=== PATIENT | female | born 1950 | race Asian ===

== ENCOUNTER 2017-09-19 09:42 | Day surgery (SDC) | END 2017-09-19 15:04 | disposition home or self-care (01) ==

== ENCOUNTER 2019-02-07 20:46 | Inpatient (IN) | payer OTHER ==
[~2019-02-07] VITALS: Ht 160 cm; Wt 66.0 kg
[~2019-02-07 20:46] MED LIST: carvedilol PO; lisinopril PO; metformin PO; omeprazole PO; simvastatin PO
[2019-02-07] MEDS ORDERED: ALBUTEROL 0.083% (NEB) 2.5 MG/3 ML AMP NEB STA (21:48)
[2019-02-07] MEDS ORDERED: IPRATROPIUM (NEB) 0.5 MG/2.5 ML AMP NEB STA (21:48)
[2019-02-07] MEDS ORDERED: CEFEPIME 2GM/50 ML (PMX) 50 ML IVPB STA (22:56)
[2019-02-07] MEDS ORDERED: SODIUM CHLORIDE 0.9% 1L BAG IV* STA (22:56)
[2019-02-07] MEDS ORDERED: VANCOMYCIN 1 GM (PMX) 250 ML IVPB ONE (23:00)
[2019-02-08] VITALS (11 sets, daily range): BP systolic 103–132; BP diastolic 55–62; PULSE 82–106; RESP 18–20; Ht 160 cm; Wt 66.0 kg
[2019-02-08] MEDS ORDERED: ACETAMINOPHEN 325 MG TAB PO PRN (02:00)
[2019-02-08] MEDS ORDERED: ONDANSETRON 4 MG INJ IV PRN (02:00)
[2019-02-08] MEDS ORDERED: NACL 0.9% 3 ML SYG IV SCH (02:00)
[2019-02-08] MEDS: ACCU-CHEK XX SCH (02:00)
--- NOTE | 2019-02-08 02:06 | HP ---
Date/Time of Note Date/Time of Note DATE: 02/08/19 TIME: 01:55 Assessment/Plan VTE Prophylaxis SCD applied (from Nsg): Yes Pharmacological prophylaxis: NA/contraindicated Pharm contraindication: low risk/ambulating Lines/Catheters IV Catheter Type (from Nrsg): Saline Lock Assessment/Plan Assessment/Plan 68 yo woman with CHF presents in mild exacerbation with cough and likely viral URI #Cough #Leukocytosis - Likely has viral URI with sick contacts at home - 3 week presentation and lack of lobar infiltrates on CXR makes bacterial pneumonia unlikely. Will stop antibiotics. - Check influenza. Patient not a candidate for oseltamivir. #CHF - Appears to be in mild CHF exacerbation with reports of PND, and pulmonary edema on CXR - Gentle diuresis with lasix. - Had been off lasix for 1 month. May need new script - Entresto not covered by insurance, may switch back to lisinopril instead. - Consult cardiology Dr. Barroso before discharging with med changes. #Back pain - Ibuprofen prn #Diabetes - Metformin may be contributing to lactic acidosis. - Will hold and start sliding scale insulin. DVT: SCDs GI: None Result Diagram: 02/07/19215702/07/192157 HPI/ROS Admit Date/Time Admit Date/Time 08 February 2019 Hx of Present Illness Ms. Noel is a 68 yo woman with recently diagnosed CHF who presents with lower back pain and cough. She was in her usual state of health until about 3 weeks ago when she developed cough productive of yellow sputum. Says several people at home were sick with a cough around that time. Hers has persisted longer than other family members. Also with aching lower back pain for about a week, worse when laying flat, improves when standing and walking. Ibuprofen helps. Finally, she complains of chest discomfort in the morning which resolves when getting up. Also occasionally has episodes of paroxysmal nocturnal dyspnea. She stopped taking her lasix 1 month ago because she didn't like urinating so m uch. She was switched from lisinopril to Entresto a week ago but her insurance won't fill it so she hasn't picked up Entresto, but did stop taking lisinopril. In the ED she was afebrile, slightly tachy to 124. WBC elevated to 12.7. POC lactate was 4.2 so she was admitted for "severe sepsis". ROS She denies fever, chills, night sweats, anorexia, weight loss, headache, dizzin ess, vertigo, dysphagia, chest pressure/palpitations, dyspnea, nausea, vomiting, abdominal pain, diarrhea, constipation, dysuria, hematuria, flank pain, melena PMH/Family/Social Past Medical History Congestive heart failure Non-insulin dependent diabetes mellitus Medications Current Medications IV Flush (NS 3 ml) 3 ml PER PROTOCOL IV ; Start 02/08/19 at 02:00; Status UNV Ondansetron HCl (Zofran Inj) 4 mg Q6H PRN IV NAUSEA/VOMITING; Start 02/08/19 at 02:00; Status UNV Acetaminophen (Tylenol Tab) 650 mg Q6H PRN PO .PAIN 1-3 OR TEMP; Start 02/08/19 at 02:00; Status UNV Ibuprofen (Motrin) 600 mg Q6H PRN PO .PAIN 1-3; Start 02/08/19 at 02:00; Status UNV Coded Allergies: No Known Allergy (Unverified , 09/19/17) Past Surgical History Left mastectomy for breast cancer 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 Cholecystectomy Social History Alcohol Use: none Smoking Status: Never smoker Drug Use: none Exam/Review of Systems Vital Signs Vitals Vital Signs Date Temp Pulse Resp B/P (MAP) Pulse Ox O2 O2 Flow FiO2 Time Delivery Rate 02/08/19 97 24 101/73 97 Room Air 01:00 (82) 02/08/19 98.5 00:00 02/07/19 21 21:55 Intake and Output 02/07/19 02/07/19 02/08/19 1515:00 23:00 07:00 IntakeIntake Total 50 ml BalanceBalance 50 ml Exam Exam Gen: well appearing woman in no acute distress Eyes: PERRL, no icterus HEENT: Moist mucous membranes, clear oropharynx Neck:Supple, no lymphadenopathy, JVD to level of the mandible. Card: Regular rate and rhythm, no murmurs Pulm: Bibasilar crackles. Breathing comfortably on room air. Abd: Soft, nontender, nondistended. No hepatosplenomegaly. Ext: No cyanosis/clubbing/edema, good peripheral pulses. Skin: warm, dry, well perfused. CHRISTIANA FARFAN MD Feb 08, 2019 02:06
--- NOTE | 2019-02-08 02:08 | ERD ---
ER Documentation Chief Complaint Chief Complaint CWP, BACK PAIN, COUGH X'S 3 WEEKS HPI This is a very pleasant 60-year female because of chest wall pain back pain and cough for 3 weeks. The cough is mildly productive. Denies because her chest wall pain. Denies any fevers or chills. Denies any nausea vomiting. Denies any other current issues. ROS All systems reviewed and are negative except as per history of present illness. Medications Home Meds Reported Medications [simvastatin] No Conflict Check, PO DAILY 09/19/17 [metformin] No Conflict Check, PO DAILY 09/19/17 [carvedilol] No Conflict Check, PO DAILY 09/19/17 [lisinopril] No Conflict Check, PO DAILY 09/19/17 [omeprazole] No Conflict Check, PO DAILY 09/19/17 Allergies Allergies: Coded Allergies: No Known Allergy (Unverified , 09/19/17) PMhx/Soc History of Surgery: Yes (cholecystectomy, , L breast ca) Anesthesia Reaction: No Hx Neurological Disorder: No Hx Respiratory Disorders: No Hx Cardiac Disorders: Yes (HEART FAILURE) Hx Psychiatric Problems: No Hx Miscellaneous Medical Probl: Yes (high cholesterol) Hx Alcohol Use: No Hx Substance Use: No Hx Tobacco Use: No Smoking Status: Never smoker Physical Exam Vitals Vital Signs Date Temp Pulse Resp B/P (MAP) Pulse Ox O2 O2 Flow FiO2 Time Delivery Rate 02/08/19 97 24 101/73 97 Room Air 01:00 (82) 02/08/19 98.5 91 19 122/58 98 Room Air 00:00 (79) 02/07/19 100 20 99 21 21:55 02/07/19 100 25 119/62 97 Room Air 21:45 (81) 02/07/19 99.5 124 18 147/76 95 20:48 (99) Physical Exam Const: No acute distress Head: Atraumatic Eyes: Normal Conjunctiva ENT: Normal External Ears, Nose and Mouth. Neck: Full range of motion. No meningismus. Resp: Clear to auscultation bilaterally Cardio: Regular rate and rhythm, no murmurs Abd: Soft, non tender, non distended. Normal bowel sounds Skin: No petechiae or rashes Back: No midline or flank tenderness Ext: No cyanosis, or edema Neur: Awake and alert Psych: Normal Mood and Affect Result Diagram: 02/07/19215702/07/192157 Results 24 hrs Laboratory Tests Test 02/07/19 21:58 02/07/19 22:04 02/07/19 23:48 White Blood Count 12.7 10^3/ul Red Blood Count 4.41 10^6/ul Hemoglobin 12.1 g/dl Hematocrit 37.2 % Mean Corpuscular Volume 84.4 fl Mean Corpuscular Hemoglobin 27.4 pg Mean Corpuscular Hemoglobin Concent 32.5 g/dl Red Cell Distribution Width 15.3 % Platelet Count 460 10^3/UL Mean Platelet Volume 10.3 fl Immature Granulocytes % 1.300 % Neutrophils % 56.4 % Lymphocytes % 26.8 % Monocytes % 10.5 % Eosinophils % 4.1 % Basophils % 0.9 % Nucleated Red Blood Cells % 0.0 /100WBC Immature Granulocytes # 0.170 10^3/ul Neutrophils # 7.1 10^3/ul Lymphocytes # 3.4 10^3/ul Monocytes # 1.3 10^3/ul Eosinophils # 0.5 10^3/ul Basophils # 0.1 10^3/ul Nucleated Red Blood Cells # 0.0 10^3/ul Prothrombin Time 11.8 Sec Prothrombin Time Ratio 0.9 INR International Normalized Ratio 0.86 Activated Partial Thromboplast Time 32.3 Sec Sodium Level 140 mmol/L Potassium Level 3.8 mmol/L Chloride Level 103 mmol/L Carbon Dioxide Level 23 mmol/L Anion Gap 14 Blood Urea Nitrogen 16 mg/dl Creatinine 0.78 mg/dl Est Glomerular Filtrat Rate mL/min > 60 mL/min Glucose Level 214 mg/dl Calcium Level 10.5 mg/dl Total Bilirubin 0.4 mg/dl Direct Bilirubin 0.00 mg/dl Indirect Bilirubin 0.4 mg/dl Aspartate Amino Transf (AST/SGOT) 23 IU/L Alanine Aminotransferase (ALT/SGPT) 16 IU/L Alkaline Phosphatase 95 IU/L Troponin I 0.015 ng/ml Total Protein 8.0 g/dl Albumin 4.3 g/dl Globulin 3.70 g/dl Albumin/Globulin Ratio 1.16 POC Venous Lactate 4.2 mmol/L Lactic Acid Level 4.7 mmol/L Current Medications Medications Dose Sig/Kenan Start Time Status Last (Trade) Ordered Route PRN Stop Time Admin Dose Reason Admin Albuterol 5 mg ONCE STAT 02/07/19 DC 02/07/19 (Proventil NEB 21:48 02/07/19 21:52 0.083% (Neb)) 21:49 Ipratropium 0.5 mg ONCE STAT 02/07/19 DC 02/07/19 Sumpter NEB 21:48 02/07/19 21:53 (Atrovent 21:49 0.02% (Neb)) Sodium 1,980 ml BOLUS OVER 2 02/07/19 DC 02/07/19 Chloride HOURS STAT 22:56 02/07/19 23:13 (NS) IV* 23:13 Cefepime HCl 50 ml @ ONCE STAT 02/07/19 DC 02/07/19 100 mls/hr IVPB 22:56 02/07/19 23:18 23:25 Vancomycin 250 ml @ ONCE ONCE 02/07/19 DC 02/07/19 HCl 125 mls/hr IVPB 23:00 02/08/19 23:55 00:59 IV Flush 3 ml PER 02/08/19 UNV (NS 3 ml) PROTOCOL IV 02:00 Ondansetron 4 mg Q6H PRN 02/08/19 UNV HCl (Zofran IV 02:00 Inj) NAUSEA/VOMITI NG 650 mg Q6H PRN 02/08/19 UNV Acetaminophen PO .PAIN 1-3 02:00 (Tylenol OR TEMP Tab) Ibuprofen 600 mg Q6H PRN 02/08/19 UNV (Motrin) PO .PAIN 1-3 02:00 Metoprolol 25 mg BID PO 02/08/19 UNV Tartrate 09:00 (Lopressor) Furosemide 40 mg DAILY PO 02/08/19 UNV (Lasix) 09:00 40 mg DAILY@06 02/08/19 UNV Pantoprazole PO 06:00 (Protonix Tab) 40 mg HS PO 02/08/19 UNV Atorvastatin 21:00 Calcium (Lipitor) Diagnostic 1 ea 02 XX 02/08/19 UNV Test (Pha) 02:00 (Accu-Chek) ONCE ONCE 02/08/19 UNV Miscellaneous HYPOGLYCEMIA XX 02:00 02/08/19 PROTOCOL 02:01 Information w... (* Miscellaneous Pharmacy Order) Insulin NOVOLOG WITH MEALS 02/08/19 UNV Aspart *MODERATE* BEDTIME SC 08:00 (Novolog ALGORITHM Insulin Pen) Procedures/MDM EKG: Rate/Rhythm: Normal Sinus Rhythm QRS, ST, T-waves: No changes consistent w/ acute ischemia Impression: No evidence of ischemia or arrhythmia Chest X-ray 1V Interpreted by me: Soft Tissue: No acute abnormalities Bones: No acute abnormalities Mediastinum/Cardiac Silhouette/Lungs: Bilateral lower lobe infiltrates Patient's infectious symptoms have not stabilized and the patient is at risk of rapid decompensation. The patient will be admitted for careful hydration, ant ibiotic therapy, and infectious source control. Severe Sepsis Assessment: Infectious Source: Pneumonia End organ damage indicated by: [Lactate > 2.0 mmol/L Severe Sepsis Managment: Blood Cultures X 2 before broad spectrum antibiotics initiated within 3 hours of recognition. Recognized at 22: 56 30 ml/kg NS bolus Completed Initial Lactate: 4.2 Repeat Lactate 4.7 Critical Care: Time: 45 minutes, independent of any separately billable procedural time Treatments/Evaluations: Emergent fluid management, while maintaining close respiratory support. Immediate broad spectrum antibiotic therapy. Simultaneous assessment for possible sources in order to direct therapy. Consid eration for invasive and chemical support to prevent respiratory or cardiac collapse. Septic Shock Assessment (1 hour post 30 ml/kg fluid bolus): Hypotension (SBP < 90 or 40 mmHg drop, MAP < 65): [No] Lactic acid > 4.0 yes, however patient is on metformin complicating this measurement Perfusion Reassessment for Septic Shock: Temp 99.1, pulse 101, respiratory rate 16, blood pressure 137/76 Heart Exam: [Tachycardic] Lung Exam: [No Crackles] Capillary Refill: [Delayed] Peripheral Pulses: [Radially present] Skin: [Mottled, pale] Accepting Care Team: Current data and ongoing care discussed. Time: 1 AM Primary Provider: Dr. Stinson Consulting: Deferred to hospitalist team Outstanding Data: none Departure Diagnosis: Primary Impression: Sepsis Sepsis type: sepsis due to unspecified organism Qualified Codes: A41.9 - Sepsis, unspecified organism Additional Impression: Pneumonia Pneumonia type: due to unspecified organism Laterality: unspecified laterality Lung location: unspecified part of lung Qualified Codes: J18.9 - Pneumonia, unspecified organism Condition: Serious ABIDA PICKERINGSandra Feb 08, 2019 02:08
[2019-02-08] MEDS ORDERED: GLUCOSE GEL 15 GRAM TUBE BUCCAL PRN (02:30)
[2019-02-08] MEDS ORDERED: GLUCOSE GEL 15 GRAM TUBE PO PRN ×2 (02:30)
[2019-02-08] MEDS ORDERED: DEXTROSE 50% 50 ML SYRINGE IV PRN ×2 (02:30)
[2019-02-08] MEDS ORDERED: GLUCAGON 1 MG INJ IM PRN (02:30)
[2019-02-08] MEDS: IBUPROFEN 600 MG TAB PO PRN (05:00)
[2019-02-08] MEDS: GUAIFENESIN 20 MG/ML 5ML CUP PO PRN (05:41)
[2019-02-08] MEDS: PANTOPRAZOLE (EC) 40 MG TAB PO SCH (05:42)
[2019-02-08] MEDS: INSULIN ASPART [NOVOLOG] 3 ML PEN SC SCH ×4 (07:46→20:56)
[2019-02-08] MEDS: METOPROLOL 25 MG TAB PO SCH ×2 (08:33→20:51)
[2019-02-08] MEDS: FUROSEMIDE 40 MG TAB PO SCH (08:33)
--- NOTE | 2019-02-08 10:51 | QN ---
Documentation Comment 68 yo F w/CHF here w/Coughx3 wks/subjective fevers found to have sepsis/URI Start abx,breathing tx. Spoke w/ and okay to leave pt on ACEI/ARB for now as Entresto note covered per insurance. EKG stable.no chest pain. Troponin negative. Patient had a stress test at clinic and will try getting tghoes reports. No inpatient cardiac work-up is indicated per railcar foreman and patient will be seen in the clinic after discharge. Will add BNP to am labs case d/w DALTON Bruno V. PORTER MARINA Feb 08, 2019 10:51
[2019-02-08] MEDS ORDERED: ALBUTEROL/IPRATROPIUM (NEB) 3 ML AMP HHN PRN (11:00)
[2019-02-08] MEDS: CEFTRIAXONE 1 GM/50 ML (PMX) 50 ML IVPB SCH (11:43)
[2019-02-08] MEDS: AZITHROMYCIN 250 MG TAB PO SCH (11:43)
[2019-02-08] MEDS ORDERED: ATOR20TA38 PO (12:40)
[2019-02-08] MEDS ORDERED: METF100010 PO (12:40)
[2019-02-08] MEDS ORDERED: METO-448 PO (12:40)
[2019-02-08] MEDS: ATORVASTATIN 40 MG TAB PO SCH (20:50)
[2019-02-09] VITALS (10 sets, daily range): BP systolic 102–126; BP diastolic 56–80; PULSE 71–105; RESP 18–20
[2019-02-09] MEDS: ACCU-CHEK XX SCH (02:00)
[2019-02-09] MEDS: PANTOPRAZOLE (EC) 40 MG TAB PO SCH (05:29)
[2019-02-09] MEDS: AZITHROMYCIN 250 MG TAB PO SCH (08:20)
[2019-02-09] MEDS: INSULIN ASPART [NOVOLOG] 3 ML PEN SC SCH ×4 (08:21→21:00)
[2019-02-09] MEDS: METOPROLOL 25 MG TAB PO SCH ×2 (08:21→21:05)
[2019-02-09] MEDS: FUROSEMIDE 40 MG TAB PO SCH (08:21)
[2019-02-09] MEDS: CEFTRIAXONE 1 GM/50 ML (PMX) 50 ML IVPB SCH (11:12)
[2019-02-09] MEDS: GUAIFENESIN 20 MG/ML 5ML CUP PO PRN ×2 (11:13→19:50)
--- NOTE | 2019-02-09 11:57 | PN ---
Date/Time of Note Date/Time of Note DATE: 02/09/19 TIME: 11:55 Assessment/Plan VTE Prophylaxis Risk score (from Ns)>0 risk: 4 SCD applied (from [facility]): No SCD contraindicated: other Pharmacological prophylaxis: NA/contraindicated Pharm contraindication: low risk/ambulating Lines/Catheters IV Catheter Type (from Rust): Saline Lock Urinary Cath still in place: No Assessment/Plan Hospital Course SUBJECTIVE: Patient with no further fevers. She continued to have a nonproductive intermittent cough. Otherwise no acute overnight episodes. OBJECTIVE: Vital signs-see below PHYSICAL EXAM: Constitutional: Adequately built,not in acute distress. HEENT: Head atraumatic and normocephalic. Eyes: Extraocular muscles intact. Anicteric sclerae. Pupils equal bilaterally, reactive to light. NECK: Supple without lymph node. CHEST: Clear and good breath sounds equally. No wheezing. No rhonchi. HEART: S1, S2. Regular rate and rhythm. ABDOMEN: Soft/non tender with no rebound tenderness. Bowel sounds were present. EXTREMITIES: No cyanosis, clubbing or edema. NEUROLOGIC: Alert and oriented x3. No focal deficit. No sensory deficit. PSYCHOSOCIAL: No signs of depression. INTEGUMENTARY: No open wounds. ASSESSMENT AND PLAN:68 yo F w/CHF here w/Coughx3 wks/subjective fevers found to have sepsis/URI Sepsis -Source: Respiratory -Recuperating nicely -Continue antibiotics and await for final cultures -Repeat lactate this morning Upper respiratory infection -Symptoms improving -Continue supportive care/empiric ABX Chronic congestive heart failure -Compensated in exam -Continue diuretics, HERON inhibitors(Entresto not covered per insurance), beta- blockers -Follow-up with outpatient parking patroller Dr. Barroso after discharge -Request sent for echo result done as outpatient DMII -Controlled -Basal/bolus insulin -Metformin on discharge Dyslipidemia -On statin DVT prophylaxis: SCDs/ambulation. PUD prophylaxis: Not indicated Disposition: Continue current management. If lactate trended down, patient can be downgraded to medical surgical floor. If clinically stable, DC planning in a.m. with outpatient follow-up. Patient was seen in collaboration with Result Diagram: 02/09/19 0523 02/09/1923 Results 24hrs Laboratory Tests Test 02/08/19 16:31 02/08/19 20:48 02/09/19 01:57 02/09/19 05:23 Bedside Glucose 164 235 H 151 White Blood Count 9.4 # Red Blood Count 4.38 Hemoglobin 11.9 L Hematocrit 36.9 L Mean Corpuscular Volume 84.2 Mean Corpuscular 27.2 L Hemoglobin Mean Corpuscular 32.2 Hemoglobin Concent Red Cell Distribution 15.4 H Width Platelet Count 408 Mean Platelet Volume 10.5 H Immature Granulocytes % 1.600 H Neutrophils % 50.9 Lymphocytes % 30.5 Monocytes % 10.8 Eosinophils % 5.3 Basophils % 0.9 Nucleated Red Blood 0.0 Cells % Immature Granulocytes # 0.150 H Neutrophils # 4.8 Lymphocytes # 2.9 Monocytes # 1.0 H Eosinophils # 0.5 Basophils # 0.1 Nucleated Red Blood 0.0 Cells # Sodium Level 140 Potassium Level 3.9 Chloride Level 101 Carbon Dioxide Level 28 Anion Gap 11 Blood Urea Nitrogen 16 Creatinine 0.59 Est Glomerular Filtrat > 60 Rate mL/min Glucose Level 158 Hemoglobin A1c 8.0 H Calcium Level 10.3 H Phosphorus Level 4.3 Magnesium Level 1.4 L Total Bilirubin 0.5 Direct Bilirubin 0.00 Indirect Bilirubin 0.5 Aspartate Amino 19 Transf (AST/SGOT) Alanine 16 Aminotransferase (ALT/SG PT) Alkaline Phosphatase 76 Total Protein 7.5 Albumin 4.0 Globulin 3.50 H Albumin/Globulin Ratio 1.14 Triglycerides Level 145 Cholesterol Level 162 LDL Cholesterol, 90 Calculated HDL Cholesterol 43 Cholesterol/HDL Ratio 3.7 Thyroid Stimulating 1.170 Hormone (TSH) Test 02/09/19 07:25 02/09/19 11:11 Bedside Glucose 158 151 Exam/Review of Systems Exam Vitals Vital Signs Date Temp Pulse Resp B/P (MAP) Pulse Ox O2 O2 Flow FiO2 Time Delivery Rate 02/09/19 98.2 76 20 126/59 98 11:45 (81) 02/08/19 Room Air 04:07 02/07/19 21 21:55 Intake and Output 02/08/19 02/08/19 02/09/19 1515:00 23:00 07:00 IntakeIntake Total 1250 ml 240 ml BalanceBalance 1250 ml 240 ml Results Results 24hrs Laboratory Tests Test 02/08/19 16:31 02/08/19 20:48 02/09/19 01:57 02/09/19 05:23 Bedside Glucose 164 235 H 151 White Blood Count 9.4 # Red Blood Count 4.38 Hemoglobin 11.9 L Hematocrit 36.9 L Mean Corpuscular Volume 84.2 Mean Corpuscular 27.2 L Hemoglobin Mean Corpuscular 32.2 Hemoglobin Concent Red Cell Distribution 15.4 H Width Platelet Count 408 Mean Platelet Volume 10.5 H Immature Granulocytes % 1.600 H Neutrophils % 50.9 Lymphocytes % 30.5 Monocytes % 10.8 Eosinophils % 5.3 Basophils % 0.9 Nucleated Red Blood 0.0 Cells % Immature Granulocytes # 0.150 H Neutrophils # 4.8 Lymphocytes # 2.9 Monocytes # 1.0 H Eosinophils # 0.5 Basophils # 0.1 Nucleated Red Blood 0.0 Cells # Sodium Level 140 Potassium Level 3.9 Chloride Level 101 Carbon Dioxide Level 28 Anion Gap 11 Blood Urea Nitrogen 16 Creatinine 0.59 Est Glomerular Filtrat > 60 Rate mL/min Glucose Level 158 Hemoglobin A1c 8.0 H Calcium Level 10.3 H Phosphorus Level 4.3 Magnesium Level 1.4 L Total Bilirubin 0.5 Direct Bilirubin 0.00 Indirect Bilirubin 0.5 Aspartate Amino 19 Transf (AST/SGOT) Alanine 16 Aminotransferase (ALT/SG PT) Alkaline Phosphatase 76 Total Protein 7.5 Albumin 4.0 Globulin 3.50 H Albumin/Globulin Ratio 1.14 Triglycerides Level 145 Cholesterol Level 162 LDL Cholesterol, 90 Calculated HDL Cholesterol 43 Cholesterol/HDL Ratio 3.7 Thyroid Stimulating 1.170 Hormone (TSH) Test 02/09/19 07:25 02/09/19 11:11 Bedside Glucose 158 151 Medications Medication Current Medications IV Flush (NS 3 ml) 3 ml PER PROTOCOL IV ; Start 02/08/19 at 02:00 Ondansetron HCl (Zofran Inj) 4 mg Q6H PRN IV NAUSEA/VOMITING; Start 02/08/19 at 02:00 Acetaminophen (Tylenol Tab) 650 mg Q6H PRN PO .PAIN 1-3 OR TEMP; Start 02/08/19 at 02:00 Ibuprofen (Motrin) 600 mg Q6H PRN PO .PAIN 1-3 Last administered on 02/08/19at 05:00; Admin Dose 600 MG; Start 02/08/19 at 02:00 Metoprolol Tartrate (Lopressor) 25 mg BID PO Last administered on 02/09/19at 08:21; Admin Dose 25 MG; Start 02/08/19 at 09:00 Furosemide (Lasix) 40 mg DAILY PO Last administered on 02/09/19 08:21; Admin Dose 40 MG; Start 02/08/19 at 09:00 Pantoprazole (Protonix Tab) 40 mg DAILY@06 PO Last administered on 02/09/19 05:29; Admin Dose 40 MG; Start 02/08/19 at 06:00 Atorvastatin Calcium (Lipitor) 40 mg HS PO Last administered on 02/08/19 20:50; Admin Dose 40 MG; Start 02/08/19 at 21:00 Diagnostic Test (Pha) (Accu-Chek) 1 ea 02 XX Last administered on 02/09/19 02:00; Admin Dose 1 EA; Start 02/08/19 at 02:00 Insulin Aspart (Novolog Insulin Pen) NOVOLOG *MODERATE* ALGORITHM WITH MEALS BEDTIME SC Last administered on 02/09/19 11:13; Admin Dose 2 UNIT; Start 02/08/19 at 08:00 Miscellaneous Information 1 ea NOTE XX ; Start 02/08/19 at 02:30 Glucose (Glutose) 15 gm Q15M PRN PO DECREASED GLUCOSE; Start 02/08/19 at 02:30 Glucose (Glutose) 22.5 gm Q15M PRN PO DECREASED GLUCOSE; Start 02/08/19 at 02:30 Dextrose (D50w Syringe) 25 ml Q15M PRN IV DECREASED GLUCOSE; Start 02/08/19 at 02:30 Dextrose (D50w Syringe) 50 ml Q15M PRN IV DECREASED GLUCOSE; Start 02/08/19 at 02:30 Glucagon (Glucagen) 1 mg Q15M PRN IM DECREASED GLUCOSE; Start 02/08/19 at 02:30 Glucose (Glutose) 15 gm Q15M PRN BUCCAL DECREASED GLUCOSE; Start 02/08/19 at 02:30 Guaifenesin (Robitussin Liquid Cup) 200 mg Q4H PRN PO COUGH Last administered on 02/09/19 11:13; Admin Dose 200 MG; Start 02/08/19 at 05:30 Ceftriaxone Sodium 50 ml @ 100 mls/hr Q24H IVPB Last administered on 02/09/19 11:12; Admin Dose 100 MLS/HR; Start 6/3/19 at 11:00 Azithromycin (Zithromax) 500 mg DAILY PO Last administered on 02/09/19at 08:20; Admin Dose 500 MG; Start 02/08/19 at 11:00 Albuterol/ Ipratropium (Duoneb) 3 ml Q4H RESP THERAPY PRN HHN SHORTNESS OF BREATH; Start 02/08/19 at 11:00 DALTON QUINTANA NP Feb 09, 2019 11:57
[2019-02-09] MEDS: IBUPROFEN 600 MG TAB PO PRN (21:04)
[2019-02-09] MEDS: ATORVASTATIN 40 MG TAB PO SCH (21:05)
[2019-02-10 01:06] VITALS: BP 109/56; PULSE 71; RESP 18
[2019-02-10] MEDS: ACCU-CHEK XX SCH (01:55)
[2019-02-10] MEDS: PANTOPRAZOLE (EC) 40 MG TAB PO SCH (05:51)
[2019-02-10 07:30] VITALS: BP 118/56; PULSE 73; RESP 17
[2019-02-10] MEDS: GUAIFENESIN 20 MG/ML 5ML CUP PO PRN (08:21)
[2019-02-10] MEDS: METOPROLOL 25 MG TAB PO SCH (08:22)
[2019-02-10] MEDS: FUROSEMIDE 40 MG TAB PO SCH (08:22)
[2019-02-10] MEDS: INSULIN ASPART [NOVOLOG] 3 ML PEN SC SCH ×2 (08:25→12:00)
[2019-02-10] MEDS ORDERED: AZITHROMYCIN 500 MG TAB PO SCH (09:00)
[2019-02-10] MEDS: CEFTRIAXONE 1 GM/50 ML (PMX) 50 ML IVPB SCH (11:51)
--- NOTE | 2019-02-10 12:20 | PDOCDIS ---
Discharge Instructions CONDITION [id number] Patient Condition: [id number] Stable HOME CARE INSTRUCTIONS: [id number] Your diet recommendation is: [id number] Carbohydrate controlled/low-cholesterol diet. FOLLOW UP/APPOINTMENTS Follow-up Plan Follow-up with primary care physician in 1 week Follow up With your private duty lpn this week DALTON QUINTANA NP Feb 10, 2019 12:20
[2019-02-10] MEDS ORDERED: LISI40TA3 PO (12:32)
[2019-02-10] MEDS ORDERED: FURO20TA3 PO (12:32)
[2019-02-10] MEDS ORDERED: GUAI-637 PO (12:32)
[2019-02-10] MEDS ORDERED: PANT40TA4 PO (12:32)
[2019-02-10] MEDS ORDERED: AZIT500T5 PO (12:32)
[2019-02-10] MEDS ORDERED: AMOX1TAB10 PO (12:36)
--- NOTE | 2019-02-10 12:46 | DS ---
Date/Time of Note Date/Time of Note DATE: 02/10/19 TIME: 12:37 Discharge Summary Admission/Discharge Info Admit Date/Time Feb 07, 2019 at 23:35 Discharge Date/Time Discharge Diagnosis S/p Sepsis 2/2 URI Upper respiratory infection/early developing pneumonia. Stable Chronic congestive heart failure DMII Dyslipidemia Patient Condition: Stable Procedures 02/07/2019: Chest Xray IMPRESSION: Patchy increased interstitial appearing densities at lung bases could represent patchy interstitial infiltrates. Hospital Course 68 yo F w/CHF here w/Coughx3 wks/subjective fevers found to have sepsis/URI w/ early developing pneumonia Patient responded well on ceftriaxone and azithromycin. Lactate trended down. Patient did not have any further fevers and cough. She was continued on home medication for underlying congestive heart failure. I have also spoke with patient's outpatient manager agricultural Dr. Barroso and was told that Entresto is not covered through her insurance and patient has been started on lisinopril for the reason. Patient to see manager agricultural after discharge as outpatient. Patient was continued on insulin regimen for underlying diabetes with stable blood sugar trends. At this time, patient with no further symptoms. Sepsis resolved. She is stable for outpatient follow-up. Patient was given azithromycin and Augmentin for another 5 more days to cover the course completion. Approximately 60-minute was spent in coordinating the discharge on this patient. [facility] Amoxicillin/Potassium Clav (Amox-Clav 875-125 mg Tablet) 875-125 mg Tab, 1 TAB PO BID, #10 TAB Prov:QUINTANA,DALTON V. SUPERVISOR OF INSTRUCTION 02/10/19 Azithromycin* (Azithromycin*) 500 Mg Tablet, 500 MG PO DAILY, #3 TAB Prov:QUINTANA,DALTON V. SUPERVISOR OF INSTRUCTION 02/10/19 Furosemide* (Furosemide*) 20 Mg Tablet, 20 MG PO DAILY, #30 TAB Prov:QUINTANA,DALTON V. SUPERVISOR OF INSTRUCTION 02/10/19 Lisinopril* (Lisinopril*) 40 Mg Tablet, 40 MG PO DAILY, #30 TAB Prov:QUINTANA,DALTON V. SUPERVISOR OF INSTRUCTION 02/10/19 Pantoprazole* (Pantoprazole*) 40 Mg Tablet.dr 40 MG PO DAILY@06, #30 TAB Prov:QUINTANA,DALTON V. SUPERVISOR OF INSTRUCTION 02/10/19 Guaifenesin (Guaifenesin) 100 Mg/5 Ml Liquid, 200 MG PO Q4H PRN for COUGH, #30 TAB Prov:DALTON QUINTANA NP 02/10/19 Reported Medications Atorvastatin Calcium* (Atorvastatin Calcium*) 20 Mg Tablet, 20 MG PO QHS, #30 TAB 02/08/19 Metformin Hcl* (Metformin Hcl*) 1,000 Mg Tablet, 1000 MG PO WITH BREAKFAST DINNE, #60 TAB 02/08/19 Metoprolol Tartrate* (Lopressor*) 25 Mg Tab, 25 MG PO BID, #60 TAB 02/08/19 [simvastatin] No Conflict Check, PO DAILY 09/19/17 [metformin] No Conflict Check, PO DAILY 09/19/17 [carvedilol] No Conflict Check, PO DAILY 09/19/17 [lisinopril] No Conflict Check, PO DAILY 09/19/17 [omeprazole] No Conflict Check, PO DAILY 09/19/17 Follow-up Plan Follow-up with primary care physician in 1 week Primary Care Provider Not On Staff Doctor Pending Labs Laboratory Tests Test 02/09/19 17:00 02/09/19 21:03 02/10/19 08:18 Bedside Glucose 185 mg/dL (70-220) 152 mg/dL (70-220) 163 mg/dL (70-220) DALTON QUINTANA NP Feb 10, 2019 12:46
== END 2019-02-10 15:25 | disposition home or self-care (01) | DRG 871 ==
LOC: E/R 20:46 → 6WM 23:35 → SUATTDRO 23:44 → 2NE 02-09 19:10
PROVIDERS: ADMIT Internal Medicine; ATTEND Internal Medicine
DX: A41.9 Sepsis, unspecified organism (principal); J18.9 Pneumonia, unspecified organism; E87.2 Acidosis; E11.8 Type 2 diabetes mellitus with unspecified complications; I50.9 Heart failure, unspecified; E78.5 Hyperlipidemia, unspecified; J06.9 Acute upper respiratory infection, unspecified
CPT/HCPCS: 36415; 71045; 80053; 80061; 82962; 83036; 83605; 83735; 83880; 84100; 84443; 84484; 85025; 85610; 85730; 93005; 94664; 96365; J0692; J0696; J1815; J3370; J7030